=== PATIENT | female | born 1975 | race Caucasian/White ===

== ENCOUNTER 2021-07-01 13:45 | Inpatient (IN) | payer OTHER ==
[2021-07-01] MEDS ORDERED: MAG HYDROX/AL HYDROX/SIMETH 30 ML UNIT-DOSE CUP PO PRN (15:27)
[2021-07-01] MEDS ORDERED: BISMUTH SUBSALICYLATE 524 MG/30 ML PO PRN (15:27)
[2021-07-01] MEDS ORDERED: NICOTINE 10 MG CARTRIDGE (INHALER) IH PRN (15:27)
[2021-07-01] MEDS ORDERED: ONDANSETRON *ODT* 4 MG TABLET SL PRN (15:27)
[2021-07-01] MEDS ORDERED: MAGNESIUM CITRATE 300 ML BOTTLE PO PRN (15:27)
[2021-07-01] MEDS ORDERED: MAGNESIUM HYDROX 2400MG/30ML ORAL SUSPENSION 30 ML CUP PO PRN (15:27)
[2021-07-01] MEDS ORDERED: IBUPROFEN 400 MG TABLET (FP) PO PRN (15:27)
[2021-07-01] MEDS ORDERED: LOPERAMIDE HCL 2 MG CAPSULE PO PRN (15:27)
[2021-07-01] MEDS ORDERED: MENTHOL/PHENOL 1 EACH UD MM PRN (15:27)
[2021-07-01] MEDS ORDERED: ACETAMINOPHEN 325 MG TABLET (FP) PO PRN ×2 (15:27)
[2021-07-01 16:00] VITALS: BMI 32.9
[2021-07-01] MEDS: PRENATAL VITAMINS W/ FOLIC ACID TABLET (FP) PO SCH (19:35)
[2021-07-01] MEDS: hydrOXYzine PAMOATE 25 MG CAPSULE (FP) PO SCH ×2 (19:35→22:50)
[2021-07-01] MEDS ORDERED: MELATONIN 5 MG TABLETS PO SCH (22:00)
[2021-07-01] MEDS ORDERED: THIAMINE HCL 100 MG TABLET (FP) PO SCH (22:00)
[2021-07-01] MEDS: METHOCARBAMOL 500 MG TABLET PO PRN (22:50)
[2021-07-02] MEDS: hydrOXYzine PAMOATE 25 MG CAPSULE (FP) PO SCH ×3 (05:59→13:22)
[2021-07-02] MEDS: PRENATAL VITAMINS W/ FOLIC ACID TABLET (FP) PO SCH (11:14)
[2021-07-02] MEDS: METHOCARBAMOL 500 MG TABLET PO PRN (11:14)
[2021-07-02 12:07] LABS: HEMATOCRIT 36.7 % (32.4-45.2); HEMOGLOBIN 12.2 GM/dL (10.7-15.3); MCH 31.7 pg (25.7-33.7); MCHC 33.1 g/dl (32.0-36.0); MEAN CELL VOLUME 95.7 fl (80-96); MEAN PLT VOLUME 8.4 fl (7.5-11.1); PLATELET COUNT 274 10^3/uL (134-434); RBC 3.84 M/mm3 (3.60-5.2); RDW 14.6 % (11.6-15.6); WHITE BLOOD COUNT 3.9 K/mm3 (4.0-10.0)
[2021-07-02 12:19] LABS: CALCIUM 8.6 mg/dL (8.5-10.1)
[2021-07-02 12:21] LABS: ALBUMIN 3.4 g/dl (3.4-5.0); BLOOD UREA NITROGEN 6.8 mg/dL (7-18)
[2021-07-02 12:24] LABS: CREATININE 0.6 mg/dL (0.55-1.3)
[2021-07-02 12:25] LABS: BILIRUBIN,TOTAL 0.4 mg/dL (0.2-1); TOT PROT 6.1 g/dl (6.4-8.2)
[2021-07-02 15:25] VITALS: BP 117/70; PULSE 86; TEMP 98.1
[2021-07-02 15:55] LABS: HIV INTERPRETATION NEGATIVE (NEGATIVE)
[2021-07-04 06:38] LABS: SARS-CoV-2 NAA Not Detected (Not Detected)
== END 2021-07-02 15:07 | disposition home or self-care (01) | DRG 774 ==
LOC: YASAS 13:45 → Y6N 18:51
PROVIDERS: ADMIT Allergy & Immunology; ATTEND Allergy & Immunology
PROC: HZ2ZZZZ Detoxification Services for Substance Abuse Treatment (ICD-10-PCS; principal; 2021-07-01)
DX: F10.230 Alcohol dependence with withdrawal, uncomplicated (principal); F14.20 Cocaine dependence, uncomplicated; F17.210 Nicotine dependence, cigarettes, uncomplicated; B35.1 Tinea unguium; E66.9 Obesity, unspecified; Z68.32 Body mass index [BMI] 32.0-32.9, adult; Z87.19 Personal history of other diseases of the digestive system
CPT/HCPCS: 36415; 80053; 81025; 85027; 86780; 87389; 87811; 93005; 93010; C9803; U0003; U0005

== ENCOUNTER 2021-08-07 12:49 | Inpatient (IN) | payer OTHER ==
[2021-08-07] MEDS ORDERED: LOPERAMIDE HCL 2 MG CAPSULE PO PRN (14:24)
[2021-08-07] MEDS ORDERED: ONDANSETRON *ODT* 4 MG TABLET SL PRN (14:24)
[2021-08-07] MEDS ORDERED: DICYCLOMINE HCL 10 MG CAPSULE PO PRN (14:24)
[2021-08-07] MEDS ORDERED: hydrOXYzine PAMOATE 25 MG CAPSULE (FP) PO PRN (14:24)
[2021-08-07] MEDS ORDERED: MENTHOL/PHENOL 1 EACH UD MM PRN (14:24)
[2021-08-07] MEDS ORDERED: METHOCARBAMOL 500 MG TABLET PO PRN (14:24)
[2021-08-07] MEDS ORDERED: ACETAMINOPHEN 325 MG TABLET (FP) PO PRN (14:24)
[2021-08-07] MEDS ORDERED: NICOTINE POLACRILEX 2 MG GUM BUC PRN (14:24)
[2021-08-07] MEDS ORDERED: MAGNESIUM CITRATE 300 ML BOTTLE PO PRN (14:24)
[2021-08-07] MEDS ORDERED: MAG HYDROX/AL HYDROX/SIMETH 30 ML UNIT-DOSE CUP PO PRN (14:24)
[2021-08-07] MEDS ORDERED: BISMUTH SUBSALICYLATE 524 MG/30 ML PO PRN (14:24)
[2021-08-07] MEDS ORDERED: PATIENT'S OWN MEDICATION (NON-FORMULARY) (Omeprazole 20 MG Capsule.Dr) PO SCH (14:30)
[2021-08-07 15:08] VITALS: BMI 34.0
[2021-08-07] MEDS: diazePAM 5 MG TABLET PO SCH ×2 (17:42→22:32)
[2021-08-07] MEDS: NICOTINE 14 MG/24 HOURS TOPICAL PATCH TD SCH (17:43)
[2021-08-07] MEDS: ACETAMINOPHEN 325 MG TABLET (FP) PO PRN (17:44)
[2021-08-07] MEDS: NICOTINE 10 MG CARTRIDGE (INHALER) IH PRN (19:03)
[2021-08-07] MEDS: MELATONIN 5 MG TABLETS PO SCH (22:32)
[2021-08-07] MEDS: THIAMINE HCL 100 MG TABLET (FP) PO SCH (22:32)
[2021-08-08] MEDS: diazePAM 5 MG TABLET PO SCH ×4 (06:44→22:19)
[2021-08-08] MEDS: NICOTINE 10 MG CARTRIDGE (INHALER) IH PRN (10:17)
[2021-08-08] MEDS: NICOTINE 14 MG/24 HOURS TOPICAL PATCH TD SCH (10:18)
[2021-08-08] MEDS: PRENATAL VITAMINS W/ FOLIC ACID TABLET (FP) PO SCH (10:19)
[2021-08-08] MEDS: PANTOPRAZOLE 20 MG TABLET PO SCH (11:26)
[2021-08-08] MEDS: THIAMINE HCL 100 MG TABLET (FP) PO SCH (22:19)
[2021-08-08] MEDS: MELATONIN 5 MG TABLETS PO SCH (22:19)
[2021-08-08] MEDS: MAGNESIUM HYDROX 2400MG/30ML ORAL SUSPENSION 30 ML CUP PO PRN (22:21)
[2021-08-09] MEDS: diazePAM 5 MG TABLET PO SCH ×3 (05:44→22:20)
[2021-08-09] MEDS: ACETAMINOPHEN 325 MG TABLET (FP) PO PRN (05:45)
[2021-08-09] MEDS: diazePAM 5 MG TABLET PO PRN (10:23)
[2021-08-09] MEDS: PRENATAL VITAMINS W/ FOLIC ACID TABLET (FP) PO SCH (10:24)
[2021-08-09] MEDS: PANTOPRAZOLE 20 MG TABLET PO SCH (10:24)
[2021-08-09] MEDS: NICOTINE 10 MG CARTRIDGE (INHALER) IH PRN ×2 (10:25→19:25)
[2021-08-09] MEDS: NICOTINE 14 MG/24 HOURS TOPICAL PATCH TD SCH (10:26)
[2021-08-09 14:38] LABS: HEMATOCRIT 34.2 % (32.4-45.2); HEMOGLOBIN 11.5 GM/dL (10.7-15.3); MCH 32.4 pg (25.7-33.7); MCHC 33.8 g/dl (32.0-36.0); MEAN CELL VOLUME 95.8 fl (80-96); MEAN PLT VOLUME 8.7 fl (7.5-11.1); PLATELET COUNT 255 10^3/uL (134-434); RBC 3.57 M/mm3 (3.60-5.2); RDW 14.2 % (11.6-15.6); WHITE BLOOD COUNT 4.3 K/mm3 (4.0-10.0)
[2021-08-09 15:04] LABS: ALBUMIN 3.3 g/dl (3.4-5.0); BLOOD UREA NITROGEN 9.2 mg/dL (7-18); CALCIUM 9.1 mg/dL (8.5-10.1)
[2021-08-09 15:08] LABS: CREATININE 0.6 mg/dL (0.55-1.3)
[2021-08-09 15:09] LABS: BILIRUBIN,TOTAL 0.5 mg/dL (0.2-1)
[2021-08-09] MEDS: MELATONIN 5 MG TABLETS PO SCH (22:20)
[2021-08-09] MEDS: THIAMINE HCL 100 MG TABLET (FP) PO SCH (22:20)
[2021-08-09] MEDS: AMOXICILLIN 500 MG PO SCH (22:20)
[2021-08-09] MEDS: IBUPROFEN 400 MG TABLET (FP) PO PRN (22:22)
[2021-08-10] MEDS: diazePAM 5 MG TABLET PO SCH ×2 (06:07→17:41)
[2021-08-10] MEDS: AMOXICILLIN 500 MG PO SCH ×3 (06:08→22:08)
[2021-08-10] MEDS: diazePAM 5 MG TABLET PO PRN (10:25)
[2021-08-10] MEDS: PANTOPRAZOLE 20 MG TABLET PO SCH (10:26)
[2021-08-10] MEDS: PRENATAL VITAMINS W/ FOLIC ACID TABLET (FP) PO SCH (10:26)
[2021-08-10] MEDS: NICOTINE 14 MG/24 HOURS TOPICAL PATCH TD SCH (10:27)
[2021-08-10] MEDS: NICOTINE 10 MG CARTRIDGE (INHALER) IH PRN ×2 (10:38→17:44)
[2021-08-10 16:09] LABS: SARS-CoV-2 NAA Not Detected (Not Detected)
[2021-08-10] MEDS: MAGNESIUM HYDROX 2400MG/30ML ORAL SUSPENSION 30 ML CUP PO PRN (17:42)
[2021-08-10] MEDS ORDERED: traZODone HCL 50 MG TABLET (FP) PO SCH (22:00)
[2021-08-10] MEDS: THIAMINE HCL 100 MG TABLET (FP) PO SCH (22:08)
[2021-08-10] MEDS: MELATONIN 5 MG TABLETS PO SCH (22:09)
[2021-08-11] MEDS: IBUPROFEN 400 MG TABLET (FP) PO PRN (05:05)
[2021-08-11] MEDS ORDERED: diazePAM 5 MG TABLET PO ONE (06:00)
[2021-08-11] MEDS: AMOXICILLIN 500 MG PO SCH (06:22)
[2021-08-11] MEDS: NICOTINE 10 MG CARTRIDGE (INHALER) IH PRN (07:02)
[2021-08-11] MEDS: PRENATAL VITAMINS W/ FOLIC ACID TABLET (FP) PO SCH (09:43)
[2021-08-11] MEDS: NICOTINE 14 MG/24 HOURS TOPICAL PATCH TD SCH (10:30)
[2021-08-11] MEDS: PANTOPRAZOLE 20 MG TABLET PO SCH (11:20)
[2021-08-11 12:39] VITALS: BP 109/76; PULSE 87; TEMP 98.3
== END 2021-08-11 13:47 | disposition other institution (70) | DRG 774 ==
LOC: YASAS 12:49 → Y3N 14:59
PROVIDERS: ADMIT Allergy & Immunology; ATTEND Allergy & Immunology
PROC: HZ2ZZZZ Detoxification Services for Substance Abuse Treatment (ICD-10-PCS; principal; 2021-08-07)
DX: F10.230 Alcohol dependence with withdrawal, uncomplicated (principal); F14.20 Cocaine dependence, uncomplicated; F17.210 Nicotine dependence, cigarettes, uncomplicated; F32.A Depression, unspecified; F19.24 Other psychoactive substance dependence with psychoactive substance-induced mood disorder; Z62.810 Personal history of physical and sexual abuse in childhood; Z56.0 Unemployment, unspecified
CPT/HCPCS: 36415; 71046-TC-FY; 80053; 85027; 86780; C9803-CS; U0003; U0005

== ENCOUNTER 2021-08-11 14:03 | Inpatient (IN) | payer OTHER ==
[2021-08-11] MEDS ORDERED: MENTHOL/PHENOL 1 EACH UD MM PRN (15:01)
[2021-08-11] MEDS ORDERED: IBUPROFEN 400 MG TABLET (FP) PO PRN (15:01)
[2021-08-11] MEDS ORDERED: LOPERAMIDE HCL 2 MG CAPSULE PO PRN (15:01)
[2021-08-11] MEDS ORDERED: P-EPHED 60MG/TRIPROLIDI 2.5MG TABLET PO PRN (15:01)
[2021-08-11] MEDS ORDERED: guaiFENesin 200 MG/10 ML 10 ML UNIT-DOSE CUPS PO PRN (15:01)
[2021-08-11] MEDS: THIAMINE HCL 100 MG TABLET (FP) PO SCH (21:10)
[2021-08-11] MEDS: MELATONIN 5 MG TABLETS PO SCH (21:10)
[2021-08-11] MEDS: TOLNAFTATE 1% CREAM 15 GM TUBE TP SCH (21:11)
[2021-08-11] MEDS: hydrOXYzine PAMOATE 25 MG CAPSULE (FP) PO PRN (21:11)
[2021-08-11] MEDS: METHOCARBAMOL 500 MG TABLET PO PRN (21:11)
[2021-08-12] MEDS: NICOTINE 7 MG/24 HOURS TOPICAL PATCH TD SCH (09:55)
[2021-08-12] MEDS: PRENATAL VITAMINS W/ FOLIC ACID TABLET (FP) PO SCH (09:55)
[2021-08-12] MEDS: TOLNAFTATE 1% CREAM 15 GM TUBE TP SCH ×2 (09:56→21:38)
[2021-08-12] MEDS: PANTOPRAZOLE 20 MG TABLET PO SCH (09:56)
[2021-08-12] MEDS: hydrOXYzine PAMOATE 25 MG CAPSULE (FP) PO PRN (09:57)
[2021-08-12] MEDS: MAGNESIUM HYDROX 2400MG/30ML ORAL SUSPENSION 30 ML CUP PO PRN (10:00)
[2021-08-12 13:14] LABS: HIV INTERPRETATION NEGATIVE (NEGATIVE)
[2021-08-12] MEDS: MAG HYDROX/AL HYDROX/SIMETH 30 ML UNIT-DOSE CUP PO PRN (16:44)
[2021-08-12] MEDS: MELATONIN 5 MG TABLETS PO SCH (21:37)
[2021-08-12] MEDS: traZODone HCL 50 MG TABLET (FP) PO PRN (21:37)
[2021-08-12] MEDS: THIAMINE HCL 100 MG TABLET (FP) PO SCH (21:38)
[2021-08-13] MEDS: NICOTINE 7 MG/24 HOURS TOPICAL PATCH TD SCH (10:25)
[2021-08-13] MEDS: PANTOPRAZOLE 20 MG TABLET PO SCH (10:26)
[2021-08-13] MEDS: PRENATAL VITAMINS W/ FOLIC ACID TABLET (FP) PO SCH (10:26)
[2021-08-13] MEDS: hydrOXYzine PAMOATE 25 MG CAPSULE (FP) PO PRN (10:26)
[2021-08-13] MEDS: METHOCARBAMOL 500 MG TABLET PO PRN ×2 (10:26→21:38)
[2021-08-13] MEDS: NICOTINE 10 MG CARTRIDGE (INHALER) IH PRN (10:28)
[2021-08-13] MEDS: TOLNAFTATE 1% CREAM 15 GM TUBE TP SCH ×2 (11:28→21:41)
[2021-08-13] MEDS: THIAMINE HCL 100 MG TABLET (FP) PO SCH (21:34)
[2021-08-13] MEDS: MELATONIN 5 MG TABLETS PO SCH (21:34)
[2021-08-13] MEDS: traZODone HCL 50 MG TABLET (FP) PO PRN (21:35)
[2021-08-13] MEDS: MAGNESIUM HYDROX 2400MG/30ML ORAL SUSPENSION 30 ML CUP PO PRN (21:38)
[2021-08-14] MEDS: PANTOPRAZOLE 20 MG TABLET PO SCH (10:45)
[2021-08-14] MEDS: PRENATAL VITAMINS W/ FOLIC ACID TABLET (FP) PO SCH (10:45)
[2021-08-14] MEDS: MAGNESIUM CITRATE 300 ML BOTTLE PO PRN (10:48)
[2021-08-14] MEDS: NICOTINE 10 MG CARTRIDGE (INHALER) IH PRN (10:48)
[2021-08-14] MEDS: TOLNAFTATE 1% CREAM 15 GM TUBE TP SCH ×2 (11:18→21:34)
[2021-08-14] MEDS: NICOTINE 7 MG/24 HOURS TOPICAL PATCH TD SCH (11:18)
[2021-08-14] MEDS: MELATONIN 5 MG TABLETS PO SCH (21:33)
[2021-08-14] MEDS: traZODone HCL 50 MG TABLET (FP) PO PRN (21:34)
[2021-08-14] MEDS: THIAMINE HCL 100 MG TABLET (FP) PO SCH (21:34)
[2021-08-15] MEDS: hydrOXYzine PAMOATE 25 MG CAPSULE (FP) PO PRN ×3 (06:25→21:41)
[2021-08-15] MEDS: PRENATAL VITAMINS W/ FOLIC ACID TABLET (FP) PO SCH (10:27)
[2021-08-15] MEDS: NICOTINE 7 MG/24 HOURS TOPICAL PATCH TD SCH (10:27)
[2021-08-15] MEDS: PANTOPRAZOLE 20 MG TABLET PO SCH (10:27)
[2021-08-15] MEDS: TOLNAFTATE 1% CREAM 15 GM TUBE TP SCH ×2 (10:28→21:40)
[2021-08-15] MEDS: NICOTINE 10 MG CARTRIDGE (INHALER) IH PRN (10:29)
[2021-08-15 16:07] LABS: SARS-CoV-2 NAA Not Detected (Not Detected)
[2021-08-15] MEDS: traZODone HCL 50 MG TABLET (FP) PO PRN (21:39)
[2021-08-15] MEDS: THIAMINE HCL 100 MG TABLET (FP) PO SCH (21:39)
[2021-08-15] MEDS: MELATONIN 5 MG TABLETS PO SCH (21:40)
[2021-08-15] MEDS: METHOCARBAMOL 500 MG TABLET PO PRN (21:42)
[2021-08-16] MEDS: PRENATAL VITAMINS W/ FOLIC ACID TABLET (FP) PO SCH (10:30)
[2021-08-16] MEDS: NICOTINE 7 MG/24 HOURS TOPICAL PATCH TD SCH (10:30)
[2021-08-16] MEDS: PANTOPRAZOLE 20 MG TABLET PO SCH (10:30)
[2021-08-16] MEDS: hydrOXYzine PAMOATE 25 MG CAPSULE (FP) PO PRN ×2 (10:32→21:43)
[2021-08-16] MEDS: NICOTINE 10 MG CARTRIDGE (INHALER) IH PRN ×2 (10:32→21:49)
[2021-08-16] MEDS: TOLNAFTATE 1% CREAM 15 GM TUBE TP SCH ×2 (10:33→21:56)
[2021-08-16] MEDS: traZODone HCL 50 MG TABLET (FP) PO PRN (21:43)
[2021-08-16] MEDS: THIAMINE HCL 100 MG TABLET (FP) PO SCH (21:43)
[2021-08-16] MEDS: METHOCARBAMOL 500 MG TABLET PO PRN (21:43)
[2021-08-16] MEDS: MELATONIN 5 MG TABLETS PO SCH (21:45)
[2021-08-16] MEDS: MAG HYDROX/AL HYDROX/SIMETH 30 ML UNIT-DOSE CUP PO PRN (21:50)
[2021-08-17] MEDS: TOLNAFTATE 1% CREAM 15 GM TUBE TP SCH ×3 (10:51→21:32)
[2021-08-17] MEDS: PRENATAL VITAMINS W/ FOLIC ACID TABLET (FP) PO SCH (10:51)
[2021-08-17] MEDS: NICOTINE 7 MG/24 HOURS TOPICAL PATCH TD SCH (10:51)
[2021-08-17] MEDS: PANTOPRAZOLE 20 MG TABLET PO SCH (10:51)
[2021-08-17] MEDS: hydrOXYzine PAMOATE 25 MG CAPSULE (FP) PO PRN ×2 (10:52→21:32)
[2021-08-17] MEDS: NICOTINE 10 MG CARTRIDGE (INHALER) IH PRN ×2 (10:53→17:00)
[2021-08-17] MEDS ORDERED: FLUCONAZOLE 150 MG TABLET PO ONE (15:30)
[2021-08-17 17:26] LABS: PH,URINE 7.5 (5.0-8.0); URINE APPEARANCE CLEAR; URINE BILIRUBIN NEGATIVE (NEGATIVE); URINE COLOR YELLOW; URINE GLUCOSE (UA) NEGATIVE (NEGATIVE); URINE KETONE NEGATIVE (NEGATIVE); URINE LEUK ESTERASE NEGATIVE (NEGATIVE); URINE NITRITE NEGATIVE (NEGATIVE); URINE PROTEIN NEGATIVE (NEGATIVE); URINE UROBILINOGEN 0.2 mg/dL (0.2-1.0)
[2021-08-17] MEDS: MELATONIN 5 MG TABLETS PO SCH (21:31)
[2021-08-17] MEDS: THIAMINE HCL 100 MG TABLET (FP) PO SCH (21:32)
[2021-08-17] MEDS: traZODone HCL 50 MG TABLET (FP) PO PRN (21:32)
[2021-08-17] MEDS: MAG HYDROX/AL HYDROX/SIMETH 30 ML UNIT-DOSE CUP PO PRN (21:48)
[2021-08-18] MEDS: MAG HYDROX/AL HYDROX/SIMETH 30 ML UNIT-DOSE CUP PO PRN ×2 (06:52→18:14)
[2021-08-18] MEDS: PRENATAL VITAMINS W/ FOLIC ACID TABLET (FP) PO SCH (10:11)
[2021-08-18] MEDS: NICOTINE 7 MG/24 HOURS TOPICAL PATCH TD SCH (10:12)
[2021-08-18] MEDS: TOLNAFTATE 1% CREAM 15 GM TUBE TP SCH ×2 (10:13→21:52)
[2021-08-18] MEDS: PANTOPRAZOLE 20 MG TABLET PO SCH (10:13)
[2021-08-18] MEDS: CLOTRIMAZOLE 1% VAGINAL CREAM WITH APPLICATOR 45 GM TUBE VG SCH ×2 (13:14→21:59)
[2021-08-18] MEDS: traZODone HCL 50 MG TABLET (FP) PO PRN (21:51)
[2021-08-18] MEDS: THIAMINE HCL 100 MG TABLET (FP) PO SCH (21:52)
[2021-08-18] MEDS: MELATONIN 5 MG TABLETS PO SCH (21:52)
[2021-08-18] MEDS: FAMOTIDINE 20 MG TABLET PO SCH (21:52)
[2021-08-18] MEDS: METHOCARBAMOL 500 MG TABLET PO PRN (21:52)
[2021-08-18] MEDS: hydrOXYzine PAMOATE 25 MG CAPSULE (FP) PO PRN (21:55)
[2021-08-18] MEDS: MAGNESIUM HYDROX 2400MG/30ML ORAL SUSPENSION 30 ML CUP PO PRN (22:02)
[2021-08-19] MEDS: MAG HYDROX/AL HYDROX/SIMETH 30 ML UNIT-DOSE CUP PO PRN ×2 (07:03→23:40)
[2021-08-19] MEDS: FAMOTIDINE 20 MG TABLET PO SCH ×2 (10:36→21:58)
[2021-08-19] MEDS: PRENATAL VITAMINS W/ FOLIC ACID TABLET (FP) PO SCH (10:37)
[2021-08-19] MEDS: NICOTINE 7 MG/24 HOURS TOPICAL PATCH TD SCH (10:37)
[2021-08-19] MEDS: TOLNAFTATE 1% CREAM 15 GM TUBE TP SCH ×2 (10:37→21:59)
[2021-08-19] MEDS: METHOCARBAMOL 500 MG TABLET PO PRN ×2 (10:40→21:58)
[2021-08-19] MEDS: CLOTRIMAZOLE 1% VAGINAL CREAM WITH APPLICATOR 45 GM TUBE VG SCH ×2 (10:42→22:01)
[2021-08-19] MEDS: MAGNESIUM CITRATE 300 ML BOTTLE PO PRN (13:41)
[2021-08-19] MEDS: THIAMINE HCL 100 MG TABLET (FP) PO SCH (21:58)
[2021-08-19] MEDS: hydrOXYzine PAMOATE 25 MG CAPSULE (FP) PO PRN (21:58)
[2021-08-19] MEDS: MELATONIN 5 MG TABLETS PO SCH (21:58)
[2021-08-19] MEDS: traZODone HCL 50 MG TABLET (FP) PO PRN (21:58)
[2021-08-19] MEDS: NICOTINE 10 MG CARTRIDGE (INHALER) IH PRN (22:02)
[2021-08-20] MEDS: MAG HYDROX/AL HYDROX/SIMETH 30 ML UNIT-DOSE CUP PO PRN ×2 (06:33→21:53)
[2021-08-20] MEDS: FAMOTIDINE 20 MG TABLET PO SCH ×2 (10:24→21:39)
[2021-08-20] MEDS: PRENATAL VITAMINS W/ FOLIC ACID TABLET (FP) PO SCH (10:25)
[2021-08-20] MEDS: NICOTINE 10 MG CARTRIDGE (INHALER) IH PRN ×2 (10:28→21:51)
[2021-08-20] MEDS: ACETAMINOPHEN 325 MG TABLET (FP) PO PRN ×2 (10:41→21:50)
[2021-08-20] MEDS: METHOCARBAMOL 500 MG TABLET PO PRN ×2 (10:43→21:39)
[2021-08-20] MEDS: NICOTINE 7 MG/24 HOURS TOPICAL PATCH TD SCH (11:13)
[2021-08-20] MEDS: CLOTRIMAZOLE 1% VAGINAL CREAM WITH APPLICATOR 45 GM TUBE VG SCH ×2 (12:59→21:43)
[2021-08-20] MEDS: TOLNAFTATE 1% CREAM 15 GM TUBE TP SCH ×2 (13:02→21:44)
[2021-08-20] MEDS: LIDOCAINE 5% TOPICAL PATCH TP SCH (16:21)
[2021-08-20] MEDS: THIAMINE HCL 100 MG TABLET (FP) PO SCH (21:39)
[2021-08-20] MEDS: traZODone HCL 50 MG TABLET (FP) PO PRN (21:40)
[2021-08-20] MEDS: hydrOXYzine PAMOATE 25 MG CAPSULE (FP) PO PRN (21:42)
[2021-08-20] MEDS: MELATONIN 5 MG TABLETS PO SCH (21:42)
[2021-08-20] MEDS: LIDOCAINE PATCH REMOVAL MC SCH (21:49)
[2021-08-21] MEDS: MAG HYDROX/AL HYDROX/SIMETH 30 ML UNIT-DOSE CUP PO PRN ×2 (06:52→21:48)
[2021-08-21] MEDS: NICOTINE 10 MG CARTRIDGE (INHALER) IH PRN ×2 (07:28→22:30)
[2021-08-21] MEDS: NICOTINE 7 MG/24 HOURS TOPICAL PATCH TD SCH (10:39)
[2021-08-21] MEDS: LIDOCAINE 5% TOPICAL PATCH TP SCH (10:39)
[2021-08-21] MEDS: CLOTRIMAZOLE 1% VAGINAL CREAM WITH APPLICATOR 45 GM TUBE VG SCH ×2 (10:39→21:45)
[2021-08-21] MEDS: PRENATAL VITAMINS W/ FOLIC ACID TABLET (FP) PO SCH (10:39)
[2021-08-21] MEDS: TOLNAFTATE 1% CREAM 15 GM TUBE TP SCH ×2 (10:40→21:47)
[2021-08-21] MEDS: hydrOXYzine PAMOATE 25 MG CAPSULE (FP) PO PRN ×2 (10:40→21:48)
[2021-08-21] MEDS: FAMOTIDINE 20 MG TABLET PO SCH ×2 (10:40→21:47)
[2021-08-21] MEDS: METHOCARBAMOL 500 MG TABLET PO PRN ×2 (10:40→21:50)
[2021-08-21] MEDS: SIMETHICONE 80 MG TAB.CHEW (FP) PO PRN ×3 (10:45→21:51)
[2021-08-21] MEDS: LIDOCAINE PATCH REMOVAL MC SCH (21:45)
[2021-08-21] MEDS: MELATONIN 5 MG TABLETS PO SCH (21:45)
[2021-08-21] MEDS: THIAMINE HCL 100 MG TABLET (FP) PO SCH (21:47)
[2021-08-21] MEDS: traZODone HCL 50 MG TABLET (FP) PO PRN (21:47)
[2021-08-21] MEDS: ACETAMINOPHEN 325 MG TABLET (FP) PO PRN (21:49)
[2021-08-22] MEDS: MAG HYDROX/AL HYDROX/SIMETH 30 ML UNIT-DOSE CUP PO PRN (06:41)
[2021-08-22] MEDS: PRENATAL VITAMINS W/ FOLIC ACID TABLET (FP) PO SCH (10:21)
[2021-08-22] MEDS: LIDOCAINE 5% TOPICAL PATCH TP SCH (10:21)
[2021-08-22] MEDS: CLOTRIMAZOLE 1% VAGINAL CREAM WITH APPLICATOR 45 GM TUBE VG SCH ×2 (10:21→21:58)
[2021-08-22] MEDS: FAMOTIDINE 20 MG TABLET PO SCH ×2 (10:22→21:59)
[2021-08-22] MEDS: TOLNAFTATE 1% CREAM 15 GM TUBE TP SCH ×2 (10:22→22:00)
[2021-08-22] MEDS: NICOTINE 7 MG/24 HOURS TOPICAL PATCH TD SCH (10:22)
[2021-08-22] MEDS: SIMETHICONE 80 MG TAB.CHEW (FP) PO PRN ×2 (10:25→22:01)
[2021-08-22] MEDS: traZODone HCL 50 MG TABLET (FP) PO PRN (21:58)
[2021-08-22] MEDS: MELATONIN 5 MG TABLETS PO SCH (21:58)
[2021-08-22] MEDS: LIDOCAINE PATCH REMOVAL MC SCH (21:58)
[2021-08-22] MEDS: THIAMINE HCL 100 MG TABLET (FP) PO SCH (21:59)
[2021-08-22] MEDS: METHOCARBAMOL 500 MG TABLET PO PRN (21:59)
[2021-08-22] MEDS: hydrOXYzine PAMOATE 25 MG CAPSULE (FP) PO PRN (21:59)
[2021-08-22] MEDS: NICOTINE 10 MG CARTRIDGE (INHALER) IH PRN (22:01)
[2021-08-22] MEDS: ACETAMINOPHEN 325 MG TABLET (FP) PO PRN (22:35)
[2021-08-23] MEDS: MAG HYDROX/AL HYDROX/SIMETH 30 ML UNIT-DOSE CUP PO PRN ×2 (07:13→19:39)
[2021-08-23] MEDS: LIDOCAINE 5% TOPICAL PATCH TP SCH (10:23)
[2021-08-23] MEDS: NICOTINE 7 MG/24 HOURS TOPICAL PATCH TD SCH (10:24)
[2021-08-23] MEDS: PRENATAL VITAMINS W/ FOLIC ACID TABLET (FP) PO SCH (10:24)
[2021-08-23] MEDS: FAMOTIDINE 20 MG TABLET PO SCH (10:24)
[2021-08-23] MEDS: TOLNAFTATE 1% CREAM 15 GM TUBE TP SCH ×2 (10:26→21:44)
[2021-08-23] MEDS: CLOTRIMAZOLE 1% VAGINAL CREAM WITH APPLICATOR 45 GM TUBE VG SCH ×2 (10:27→21:41)
[2021-08-23] MEDS: NICOTINE 10 MG CARTRIDGE (INHALER) IH PRN (10:31)
[2021-08-23] MEDS: METHOCARBAMOL 500 MG TABLET PO PRN ×2 (10:31→21:45)
[2021-08-23] MEDS: SIMETHICONE 80 MG TAB.CHEW (FP) PO PRN ×2 (10:33→21:47)
[2021-08-23] MEDS: LIDOCAINE PATCH REMOVAL MC SCH (21:38)
[2021-08-23] MEDS: MELATONIN 5 MG TABLETS PO SCH (21:39)
[2021-08-23] MEDS: traZODone HCL 50 MG TABLET (FP) PO PRN (21:45)
[2021-08-23] MEDS: hydrOXYzine PAMOATE 25 MG CAPSULE (FP) PO PRN (21:45)
[2021-08-23] MEDS: THIAMINE HCL 100 MG TABLET (FP) PO SCH (21:45)
[2021-08-24] MEDS: MAG HYDROX/AL HYDROX/SIMETH 30 ML UNIT-DOSE CUP PO PRN (06:39)
[2021-08-24] MEDS: PRENATAL VITAMINS W/ FOLIC ACID TABLET (FP) PO SCH (10:19)
[2021-08-24] MEDS: TOLNAFTATE 1% CREAM 15 GM TUBE TP SCH ×2 (10:20→21:40)
[2021-08-24] MEDS: LIDOCAINE 5% TOPICAL PATCH TP SCH (10:20)
[2021-08-24] MEDS: NICOTINE 7 MG/24 HOURS TOPICAL PATCH TD SCH (10:21)
[2021-08-24] MEDS: CLOTRIMAZOLE 1% VAGINAL CREAM WITH APPLICATOR 45 GM TUBE VG SCH ×2 (10:22→21:39)
[2021-08-24] MEDS: SIMETHICONE 80 MG TAB.CHEW (FP) PO PRN ×2 (10:23→21:42)
[2021-08-24] MEDS: LIDOCAINE PATCH REMOVAL MC SCH (21:39)
[2021-08-24] MEDS: traZODone HCL 50 MG TABLET (FP) PO PRN (21:39)
[2021-08-24] MEDS: METHOCARBAMOL 500 MG TABLET PO PRN (21:40)
[2021-08-24] MEDS: THIAMINE HCL 100 MG TABLET (FP) PO SCH (21:40)
[2021-08-24] MEDS: MELATONIN 5 MG TABLETS PO SCH (21:40)
[2021-08-24] MEDS: hydrOXYzine PAMOATE 25 MG CAPSULE (FP) PO PRN (21:40)
[2021-08-24] MEDS: NICOTINE 10 MG CARTRIDGE (INHALER) IH PRN (22:12)
[2021-08-25] MEDS: ACETAMINOPHEN 325 MG TABLET (FP) PO PRN (06:45)
[2021-08-25] MEDS: MAG HYDROX/AL HYDROX/SIMETH 30 ML UNIT-DOSE CUP PO PRN ×3 (06:46→21:56)
[2021-08-25] MEDS: PRENATAL VITAMINS W/ FOLIC ACID TABLET (FP) PO SCH (10:31)
[2021-08-25] MEDS: NICOTINE 7 MG/24 HOURS TOPICAL PATCH TD SCH (10:31)
[2021-08-25] MEDS: LIDOCAINE 5% TOPICAL PATCH TP SCH (10:32)
[2021-08-25] MEDS: TOLNAFTATE 1% CREAM 15 GM TUBE TP SCH ×2 (10:33→21:51)
[2021-08-25] MEDS: METHOCARBAMOL 500 MG TABLET PO PRN ×2 (10:33→21:54)
[2021-08-25] MEDS: hydrOXYzine PAMOATE 25 MG CAPSULE (FP) PO PRN ×2 (10:33→21:54)
[2021-08-25] MEDS: SIMETHICONE 80 MG TAB.CHEW (FP) PO PRN (10:35)
[2021-08-25] MEDS: CLOTRIMAZOLE 1% VAGINAL CREAM WITH APPLICATOR 45 GM TUBE VG SCH (11:00)
[2021-08-25] MEDS: LIDOCAINE PATCH REMOVAL MC SCH (21:51)
[2021-08-25] MEDS: THIAMINE HCL 100 MG TABLET (FP) PO SCH (21:54)
[2021-08-25] MEDS: MELATONIN 5 MG TABLETS PO SCH (21:54)
[2021-08-25] MEDS: traZODone HCL 50 MG TABLET (FP) PO PRN (21:54)
[2021-08-25] MEDS: NICOTINE 10 MG CARTRIDGE (INHALER) IH PRN (21:58)
[2021-08-26] MEDS: OMEPRAZOLE PO SCH (07:11)
[2021-08-26] MEDS: NICOTINE 7 MG/24 HOURS TOPICAL PATCH TD SCH (10:10)
[2021-08-26] MEDS: PRENATAL VITAMINS W/ FOLIC ACID TABLET (FP) PO SCH (10:10)
[2021-08-26] MEDS: LIDOCAINE 5% TOPICAL PATCH TP SCH (10:11)
[2021-08-26] MEDS: MAG HYDROX/AL HYDROX/SIMETH 30 ML UNIT-DOSE CUP PO PRN (10:15)
[2021-08-26] MEDS: TOLNAFTATE 1% CREAM 15 GM TUBE TP SCH ×2 (10:16→21:05)
[2021-08-26] MEDS: MAGNESIUM HYDROX 2400MG/30ML ORAL SUSPENSION 30 ML CUP PO PRN (13:58)
[2021-08-26] MEDS: METHOCARBAMOL 500 MG TABLET PO PRN ×2 (13:59→21:05)
[2021-08-26] MEDS: MELATONIN 5 MG TABLETS PO SCH (21:05)
[2021-08-26] MEDS: LIDOCAINE PATCH REMOVAL MC SCH (21:05)
[2021-08-26] MEDS: THIAMINE HCL 100 MG TABLET (FP) PO SCH (21:05)
[2021-08-26] MEDS: traZODone HCL 50 MG TABLET (FP) PO PRN (21:06)
[2021-08-26] MEDS: hydrOXYzine PAMOATE 25 MG CAPSULE (FP) PO PRN (21:06)
[2021-08-26] MEDS: SIMETHICONE 80 MG TAB.CHEW (FP) PO PRN (21:09)
[2021-08-27] MEDS: OMEPRAZOLE PO SCH (06:49)
[2021-08-27] MEDS: LIDOCAINE 5% TOPICAL PATCH TP SCH (10:41)
[2021-08-27] MEDS: NICOTINE 7 MG/24 HOURS TOPICAL PATCH TD SCH (10:42)
[2021-08-27] MEDS: PRENATAL VITAMINS W/ FOLIC ACID TABLET (FP) PO SCH (10:42)
[2021-08-27] MEDS: SIMETHICONE 80 MG TAB.CHEW (FP) PO PRN (10:42)
[2021-08-27] MEDS: TOLNAFTATE 1% CREAM 15 GM TUBE TP SCH ×2 (10:42→22:12)
[2021-08-27] MEDS: OXYBUTYNIN CHLORIDE 5 MG TABLET PO SCH ×2 (12:33→22:09)
[2021-08-27] MEDS: NALTREXONE HCL 50 MG TABLET PO SCH (12:33)
[2021-08-27] MEDS: LIDOCAINE PATCH REMOVAL MC SCH (22:07)
[2021-08-27] MEDS: MELATONIN 5 MG TABLETS PO SCH (22:07)
[2021-08-27] MEDS: THIAMINE HCL 100 MG TABLET (FP) PO SCH (22:07)
[2021-08-27] MEDS: traZODone HCL 50 MG TABLET (FP) PO PRN (22:08)
[2021-08-27] MEDS: ACETAMINOPHEN 325 MG TABLET (FP) PO PRN (22:08)
[2021-08-27] MEDS: METHOCARBAMOL 500 MG TABLET PO PRN (22:11)
[2021-08-27] MEDS: hydrOXYzine PAMOATE 25 MG CAPSULE (FP) PO PRN (22:11)
[2021-08-27] MEDS: MAGNESIUM HYDROX 2400MG/30ML ORAL SUSPENSION 30 ML CUP PO PRN (22:13)
[2021-08-28] MEDS: MAGNESIUM HYDROX 2400MG/30ML ORAL SUSPENSION 30 ML CUP PO PRN (07:08)
[2021-08-28] MEDS: OMEPRAZOLE PO SCH (07:09)
[2021-08-28] MEDS: NALTREXONE HCL 50 MG TABLET PO SCH (11:15)
[2021-08-28] MEDS: OXYBUTYNIN CHLORIDE 5 MG TABLET PO SCH ×2 (11:15→22:08)
[2021-08-28] MEDS: PRENATAL VITAMINS W/ FOLIC ACID TABLET (FP) PO SCH (11:15)
[2021-08-28] MEDS: NICOTINE 7 MG/24 HOURS TOPICAL PATCH TD SCH (11:16)
[2021-08-28] MEDS: LIDOCAINE 5% TOPICAL PATCH TP SCH (11:16)
[2021-08-28] MEDS: TOLNAFTATE 1% CREAM 15 GM TUBE TP SCH ×2 (11:17→22:10)
[2021-08-28] MEDS: SIMETHICONE 80 MG TAB.CHEW (FP) PO PRN (20:14)
[2021-08-28] MEDS: THIAMINE HCL 100 MG TABLET (FP) PO SCH (22:07)
[2021-08-28] MEDS: traZODone HCL 50 MG TABLET (FP) PO PRN (22:07)
[2021-08-28] MEDS: MELATONIN 5 MG TABLETS PO SCH (22:07)
[2021-08-28] MEDS: METHOCARBAMOL 500 MG TABLET PO PRN (22:08)
[2021-08-28] MEDS: LIDOCAINE PATCH REMOVAL MC SCH (22:10)
[2021-08-28] MEDS: hydrOXYzine PAMOATE 25 MG CAPSULE (FP) PO PRN (22:11)
[2021-08-28] MEDS: MAG HYDROX/AL HYDROX/SIMETH 30 ML UNIT-DOSE CUP PO PRN (22:13)
[2021-08-29] MEDS: OMEPRAZOLE PO SCH (06:25)
[2021-08-29] MEDS: SIMETHICONE 80 MG TAB.CHEW (FP) PO PRN ×2 (06:26→21:57)
[2021-08-29] MEDS: PRENATAL VITAMINS W/ FOLIC ACID TABLET (FP) PO SCH (10:42)
[2021-08-29] MEDS: NICOTINE 7 MG/24 HOURS TOPICAL PATCH TD SCH (10:43)
[2021-08-29] MEDS: LIDOCAINE 5% TOPICAL PATCH TP SCH (10:44)
[2021-08-29] MEDS: NALTREXONE HCL 50 MG TABLET PO SCH (10:45)
[2021-08-29] MEDS: OXYBUTYNIN CHLORIDE 5 MG TABLET PO SCH ×2 (10:47→21:57)
[2021-08-29] MEDS: TOLNAFTATE 1% CREAM 15 GM TUBE TP SCH ×2 (10:47→21:59)
[2021-08-29] MEDS: hydrOXYzine PAMOATE 25 MG CAPSULE (FP) PO PRN (10:50)
[2021-08-29] MEDS: MAGNESIUM HYDROX 2400MG/30ML ORAL SUSPENSION 30 ML CUP PO PRN (10:52)
[2021-08-29] MEDS: METHOCARBAMOL 500 MG TABLET PO PRN (21:57)
[2021-08-29] MEDS: THIAMINE HCL 100 MG TABLET (FP) PO SCH (21:57)
[2021-08-29] MEDS: traZODone HCL 50 MG TABLET (FP) PO PRN (21:57)
[2021-08-29] MEDS: NICOTINE 10 MG CARTRIDGE (INHALER) IH PRN (21:59)
[2021-08-29] MEDS: LIDOCAINE PATCH REMOVAL MC SCH (21:59)
[2021-08-29] MEDS: MELATONIN 5 MG TABLETS PO SCH (22:00)
[2021-08-30] MEDS: OMEPRAZOLE PO SCH (06:48)
[2021-08-30] MEDS: PRENATAL VITAMINS W/ FOLIC ACID TABLET (FP) PO SCH (10:56)
[2021-08-30] MEDS: NICOTINE 7 MG/24 HOURS TOPICAL PATCH TD SCH (10:56)
[2021-08-30] MEDS: NALTREXONE HCL 50 MG TABLET PO SCH (10:57)
[2021-08-30] MEDS: LIDOCAINE 5% TOPICAL PATCH TP SCH (10:57)
[2021-08-30] MEDS: SIMETHICONE 80 MG TAB.CHEW (FP) PO PRN (10:57)
[2021-08-30] MEDS: OXYBUTYNIN CHLORIDE 5 MG TABLET PO SCH ×2 (10:57→21:11)
[2021-08-30] MEDS: TOLNAFTATE 1% CREAM 15 GM TUBE TP SCH ×2 (11:01→21:12)
[2021-08-30] MEDS: LIDOCAINE PATCH REMOVAL MC SCH (21:11)
[2021-08-30] MEDS: MELATONIN 5 MG TABLETS PO SCH (21:11)
[2021-08-30] MEDS: traZODone HCL 50 MG TABLET (FP) PO PRN (21:12)
[2021-08-30] MEDS: THIAMINE HCL 100 MG TABLET (FP) PO SCH (21:12)
[2021-08-30] MEDS: METHOCARBAMOL 500 MG TABLET PO PRN (21:13)
[2021-08-30] MEDS: hydrOXYzine PAMOATE 25 MG CAPSULE (FP) PO PRN (21:15)
[2021-08-31] MEDS: OMEPRAZOLE PO SCH (06:46)
[2021-08-31] MEDS: MAGNESIUM HYDROX 2400MG/30ML ORAL SUSPENSION 30 ML CUP PO PRN (06:48)
[2021-08-31] MEDS: NICOTINE 7 MG/24 HOURS TOPICAL PATCH TD SCH (10:59)
[2021-08-31] MEDS: SIMETHICONE 80 MG TAB.CHEW (FP) PO PRN ×2 (10:59→21:45)
[2021-08-31] MEDS: PRENATAL VITAMINS W/ FOLIC ACID TABLET (FP) PO SCH (10:59)
[2021-08-31] MEDS: NALTREXONE HCL 50 MG TABLET PO SCH (10:59)
[2021-08-31] MEDS: LIDOCAINE 5% TOPICAL PATCH TP SCH (11:00)
[2021-08-31] MEDS: OXYBUTYNIN CHLORIDE 5 MG TABLET PO SCH ×2 (11:01→21:45)
[2021-08-31] MEDS: TOLNAFTATE 1% CREAM 15 GM TUBE TP SCH ×2 (11:03→21:46)
[2021-08-31] MEDS: traZODone HCL 50 MG TABLET (FP) PO PRN (21:44)
[2021-08-31] MEDS: METHOCARBAMOL 500 MG TABLET PO PRN (21:45)
[2021-08-31] MEDS: MELATONIN 5 MG TABLETS PO SCH (21:45)
[2021-08-31] MEDS: LIDOCAINE PATCH REMOVAL MC SCH (21:45)
[2021-08-31] MEDS: hydrOXYzine PAMOATE 25 MG CAPSULE (FP) PO PRN (21:46)
[2021-08-31] MEDS: THIAMINE HCL 100 MG TABLET (FP) PO SCH (21:46)
[2021-08-31] MEDS: SODIUM CHLORIDE NASAL SPRAY 44 ML BOTTLE NS PRN (22:02)
[2021-09-01] MEDS: OMEPRAZOLE PO SCH (07:00)
[2021-09-01] MEDS: SODIUM CHLORIDE NASAL SPRAY 44 ML BOTTLE NS PRN ×3 (07:03→21:56)
[2021-09-01] MEDS: MAGNESIUM HYDROX 2400MG/30ML ORAL SUSPENSION 30 ML CUP PO PRN (07:04)
[2021-09-01] MEDS: LIDOCAINE 5% TOPICAL PATCH TP SCH (10:59)
[2021-09-01] MEDS: OXYBUTYNIN CHLORIDE 5 MG TABLET PO SCH ×2 (10:59→21:58)
[2021-09-01] MEDS: PRENATAL VITAMINS W/ FOLIC ACID TABLET (FP) PO SCH (10:59)
[2021-09-01] MEDS: NICOTINE 7 MG/24 HOURS TOPICAL PATCH TD SCH (10:59)
[2021-09-01] MEDS: NALTREXONE HCL 50 MG TABLET PO SCH (11:00)
[2021-09-01] MEDS: SIMETHICONE 80 MG TAB.CHEW (FP) PO PRN ×3 (11:03→21:58)
[2021-09-01] MEDS: TOLNAFTATE 1% CREAM 15 GM TUBE TP SCH ×2 (11:05→21:56)
[2021-09-01] MEDS: traZODone HCL 50 MG TABLET (FP) PO PRN (21:57)
[2021-09-01] MEDS: THIAMINE HCL 100 MG TABLET (FP) PO SCH (21:58)
[2021-09-01] MEDS: hydrOXYzine PAMOATE 25 MG CAPSULE (FP) PO PRN (21:58)
[2021-09-01] MEDS: METHOCARBAMOL 500 MG TABLET PO PRN (21:58)
[2021-09-01] MEDS: MELATONIN 5 MG TABLETS PO SCH (21:59)
[2021-09-01] MEDS: LIDOCAINE PATCH REMOVAL MC SCH (21:59)
[2021-09-01] MEDS: NICOTINE 10 MG CARTRIDGE (INHALER) IH PRN (22:03)
[2021-09-02] MEDS: OMEPRAZOLE PO SCH (06:52)
[2021-09-02] MEDS: MAGNESIUM HYDROX 2400MG/30ML ORAL SUSPENSION 30 ML CUP PO PRN (06:55)
[2021-09-02] MEDS: NALTREXONE HCL 50 MG TABLET PO SCH (10:58)
[2021-09-02] MEDS: PRENATAL VITAMINS W/ FOLIC ACID TABLET (FP) PO SCH (10:58)
[2021-09-02] MEDS: LIDOCAINE 5% TOPICAL PATCH TP SCH (10:58)
[2021-09-02] MEDS: TOLNAFTATE 1% CREAM 15 GM TUBE TP SCH ×2 (10:58→21:08)
[2021-09-02] MEDS: NICOTINE 7 MG/24 HOURS TOPICAL PATCH TD SCH (10:59)
[2021-09-02] MEDS: SIMETHICONE 80 MG TAB.CHEW (FP) PO PRN ×2 (11:00→21:06)
[2021-09-02] MEDS: SODIUM CHLORIDE NASAL SPRAY 44 ML BOTTLE NS PRN ×2 (11:01→21:10)
[2021-09-02] MEDS: OXYBUTYNIN CHLORIDE 5 MG TABLET PO SCH ×2 (12:10→21:06)
[2021-09-02] MEDS: THIAMINE HCL 100 MG TABLET (FP) PO SCH (21:06)
[2021-09-02] MEDS: METHOCARBAMOL 500 MG TABLET PO PRN (21:06)
[2021-09-02] MEDS: hydrOXYzine PAMOATE 25 MG CAPSULE (FP) PO PRN (21:06)
[2021-09-02] MEDS: MELATONIN 5 MG TABLETS PO SCH (21:06)
[2021-09-02] MEDS: LIDOCAINE PATCH REMOVAL MC SCH (21:06)
[2021-09-03] MEDS: SIMETHICONE 80 MG TAB.CHEW (FP) PO PRN ×3 (06:58→22:14)
[2021-09-03] MEDS: SODIUM CHLORIDE NASAL SPRAY 44 ML BOTTLE NS PRN (06:58)
[2021-09-03] MEDS: OMEPRAZOLE PO SCH (06:59)
[2021-09-03] MEDS: LIDOCAINE 5% TOPICAL PATCH TP SCH (10:54)
[2021-09-03] MEDS: NICOTINE 7 MG/24 HOURS TOPICAL PATCH TD SCH (10:54)
[2021-09-03] MEDS: PRENATAL VITAMINS W/ FOLIC ACID TABLET (FP) PO SCH (10:54)
[2021-09-03] MEDS: NALTREXONE HCL 50 MG TABLET PO SCH (10:55)
[2021-09-03] MEDS: TOLNAFTATE 1% CREAM 15 GM TUBE TP SCH ×2 (10:55→22:11)
[2021-09-03] MEDS: OXYBUTYNIN CHLORIDE 5 MG TABLET PO SCH ×2 (10:56→22:13)
[2021-09-03] MEDS: LIDOCAINE PATCH REMOVAL MC SCH (22:10)
[2021-09-03] MEDS: MELATONIN 5 MG TABLETS PO SCH (22:10)
[2021-09-03] MEDS: hydrOXYzine PAMOATE 25 MG CAPSULE (FP) PO PRN (22:13)
[2021-09-03] MEDS: THIAMINE HCL 100 MG TABLET (FP) PO SCH (22:13)
[2021-09-04] MEDS: MAGNESIUM HYDROX 2400MG/30ML ORAL SUSPENSION 30 ML CUP PO PRN (06:55)
[2021-09-04] MEDS: OMEPRAZOLE PO SCH (06:55)
[2021-09-04] MEDS: OXYBUTYNIN CHLORIDE 5 MG TABLET PO SCH ×2 (10:41→22:06)
[2021-09-04] MEDS: NICOTINE 7 MG/24 HOURS TOPICAL PATCH TD SCH (10:41)
[2021-09-04] MEDS: LIDOCAINE 5% TOPICAL PATCH TP SCH (10:41)
[2021-09-04] MEDS: PRENATAL VITAMINS W/ FOLIC ACID TABLET (FP) PO SCH (10:43)
[2021-09-04] MEDS: NALTREXONE HCL 50 MG TABLET PO SCH (10:43)
[2021-09-04] MEDS: SIMETHICONE 80 MG TAB.CHEW (FP) PO PRN ×2 (10:44→22:10)
[2021-09-04] MEDS: SODIUM CHLORIDE NASAL SPRAY 44 ML BOTTLE NS PRN ×2 (10:45→22:10)
[2021-09-04] MEDS: TOLNAFTATE 1% CREAM 15 GM TUBE TP SCH ×2 (10:52→22:07)
[2021-09-04] MEDS: NICOTINE 10 MG CARTRIDGE (INHALER) IH PRN (10:56)
[2021-09-04] MEDS: MELATONIN 5 MG TABLETS PO SCH (22:06)
[2021-09-04] MEDS: hydrOXYzine PAMOATE 25 MG CAPSULE (FP) PO PRN (22:07)
[2021-09-04] MEDS: THIAMINE HCL 100 MG TABLET (FP) PO SCH (22:07)
[2021-09-04] MEDS: LIDOCAINE PATCH REMOVAL MC SCH (22:07)
[2021-09-04] MEDS: METHOCARBAMOL 500 MG TABLET PO PRN (22:09)
[2021-09-05] MEDS: OMEPRAZOLE PO SCH (06:24)
[2021-09-05] MEDS: SODIUM CHLORIDE NASAL SPRAY 44 ML BOTTLE NS PRN ×2 (06:28→10:33)
[2021-09-05] MEDS: PRENATAL VITAMINS W/ FOLIC ACID TABLET (FP) PO SCH (10:31)
[2021-09-05] MEDS: LIDOCAINE 5% TOPICAL PATCH TP SCH (10:31)
[2021-09-05] MEDS: NICOTINE 7 MG/24 HOURS TOPICAL PATCH TD SCH (10:32)
[2021-09-05] MEDS: OXYBUTYNIN CHLORIDE 5 MG TABLET PO SCH ×2 (10:32→22:09)
[2021-09-05] MEDS: NALTREXONE HCL 50 MG TABLET PO SCH (10:32)
[2021-09-05] MEDS: SIMETHICONE 80 MG TAB.CHEW (FP) PO PRN ×2 (10:33→22:11)
[2021-09-05] MEDS: TOLNAFTATE 1% CREAM 15 GM TUBE TP SCH ×2 (10:33→22:10)
[2021-09-05] MEDS: MAGNESIUM HYDROX 2400MG/30ML ORAL SUSPENSION 30 ML CUP PO PRN (10:36)
[2021-09-05] MEDS ORDERED: MAGNESIUM CITRATE 300 ML BOTTLE PO PRN (15:42)
[2021-09-05] MEDS: MELATONIN 5 MG TABLETS PO SCH (22:09)
[2021-09-05] MEDS: LIDOCAINE PATCH REMOVAL MC SCH (22:10)
[2021-09-05] MEDS: THIAMINE HCL 100 MG TABLET (FP) PO SCH (22:10)
[2021-09-06] MEDS: SODIUM CHLORIDE NASAL SPRAY 44 ML BOTTLE NS PRN ×2 (06:45→21:11)
[2021-09-06] MEDS: SIMETHICONE 80 MG TAB.CHEW (FP) PO PRN ×2 (06:47→21:11)
[2021-09-06] MEDS: OMEPRAZOLE PO SCH (06:47)
[2021-09-06] MEDS: NICOTINE 7 MG/24 HOURS TOPICAL PATCH TD SCH (10:55)
[2021-09-06] MEDS: PRENATAL VITAMINS W/ FOLIC ACID TABLET (FP) PO SCH (10:55)
[2021-09-06] MEDS: LIDOCAINE 5% TOPICAL PATCH TP SCH (10:55)
[2021-09-06] MEDS: TOLNAFTATE 1% CREAM 15 GM TUBE TP SCH ×2 (10:56→21:10)
[2021-09-06] MEDS: NALTREXONE HCL 50 MG TABLET PO SCH (10:56)
[2021-09-06] MEDS: OXYBUTYNIN CHLORIDE 5 MG TABLET PO SCH ×2 (10:56→21:09)
[2021-09-06] MEDS: THIAMINE HCL 100 MG TABLET (FP) PO SCH (21:09)
[2021-09-06] MEDS: LIDOCAINE PATCH REMOVAL MC SCH (21:09)
[2021-09-06] MEDS: MELATONIN 5 MG TABLETS PO SCH (21:09)
[2021-09-06] MEDS: METHOCARBAMOL 500 MG TABLET PO PRN (21:09)
[2021-09-06] MEDS: traZODone HCL 50 MG TABLET (FP) PO PRN (21:09)
[2021-09-06] MEDS: hydrOXYzine PAMOATE 25 MG CAPSULE (FP) PO PRN (21:09)
[2021-09-07] MEDS: SIMETHICONE 80 MG TAB.CHEW (FP) PO PRN (06:10)
[2021-09-07] MEDS: MAGNESIUM HYDROX 2400MG/30ML ORAL SUSPENSION 30 ML CUP PO PRN (06:10)
[2021-09-07] MEDS: OMEPRAZOLE PO SCH (06:10)
[2021-09-07 07:32] VITALS: BP 104/64; PULSE 73; TEMP 97.8
[2021-09-07] MEDS: TOLNAFTATE 1% CREAM 15 GM TUBE TP SCH (11:13)
[2021-09-07] MEDS: NALTREXONE HCL 50 MG TABLET PO SCH (11:13)
[2021-09-07] MEDS: PRENATAL VITAMINS W/ FOLIC ACID TABLET (FP) PO SCH (11:14)
[2021-09-07] MEDS: NICOTINE 7 MG/24 HOURS TOPICAL PATCH TD SCH (11:15)
[2021-09-07] MEDS: LIDOCAINE 5% TOPICAL PATCH TP SCH (11:16)
[2021-09-07] MEDS: OXYBUTYNIN CHLORIDE 5 MG TABLET PO SCH (11:20)
== END 2021-09-07 15:35 | disposition home or self-care (01) | DRG 772 ==
LOC: YASAS 14:03 → Y5N 14:04
PROVIDERS: ADMIT Allergy & Immunology; ATTEND Allergy & Immunology
PROC: HZ42ZZZ Group Counseling for Substance Abuse Treatment, Cognitive-Behavioral (ICD-10-PCS; principal; 2021-08-11)
DX: F10.20 Alcohol dependence, uncomplicated (principal); F14.20 Cocaine dependence, uncomplicated; F11.20 Opioid dependence, uncomplicated; F17.210 Nicotine dependence, cigarettes, uncomplicated; F32.A Depression, unspecified; J30.9 Allergic rhinitis, unspecified; K59.01 Slow transit constipation; K21.9 Gastro-esophageal reflux disease without esophagitis; N32.81 Overactive bladder; B37.9 Candidiasis, unspecified; Z62.810 Personal history of physical and sexual abuse in childhood; S09.90XA Unspecified injury of head, initial encounter; Y04.2XXA Assault by strike against or bumped into by another person, initial encounter; Y92.230 Patient room in hospital as the place of occurrence of the external cause; Z91.410 Personal history of adult physical and sexual abuse
CPT/HCPCS: 36415; 81003; 87086; 87389; C9803-CS; U0003; U0005

== ENCOUNTER 2021-08-26 05:38 | Emergency (ER) | payer OTHER ==
[2021-08-26 05:57] VITALS: BP 127/81; PULSE 79; TEMP 97.6; BMI 33.0
[2021-08-26] MEDS ORDERED: ACETAMINOPHEN 500 MG TABLET (FP) PO ONE (06:16)
[2021-08-26] MEDS ORDERED: ACETAMINOPHEN 325 MG TABLET (FP) ONE (06:18)
== END 2021-08-26 06:37 ==
LOC: JER 05:38
DX: S09.90XA Unspecified injury of head, initial encounter (principal); Y04.0XXA Assault by unarmed brawl or fight, initial encounter
CPT/HCPCS: 99283-25